=== PATIENT | male | born 1970 | race Two or more races ===

== ENCOUNTER → 2017-08-07 | Day surgery (SDC) | payer OTHER ==
[~2017-08-07] MED LIST: ATROPINE 1 MG/10 ML SYRINGE IV; DIPHENHYDRAMINE 50 MG INJ IV; EPHEDrine SULFATE 50 MG/5 ML SYG IV; FENTAnyl 50 MCG/ML VIAL IV; HYDROmorphONE (0.2 MG/ML) 10ML SYG IV; LABETALOL HCL 20MG INJ IV; MEPERIDINE 25 MG INJ IV; MIDAZOLAM 1 MG/ML 2 ML INJ IV; ONDANSETRON 4 MG INJ IV; hydrALAzine 20 MG INJ IV; morphine (1 MG/ML) 10ML SYRINGE IV
== END | disposition home or self-care (01) ==
LOC: SDS 07:40
DX: M23.231 Derangement of other medial meniscus due to old tear or injury, right knee (principal); M23.261 Derangement of other lateral meniscus due to old tear or injury, right knee; Z53.9 Procedure and treatment not carried out, unspecified reason

== ENCOUNTER 2017-08-16 08:11 | Day surgery (SDC) | payer OTHER ==
[2017-08-16] MEDS: ACETAMINOPHEN 325 MG TAB PO (09:31)
[2017-08-16] MEDS: DIPHENHYDRAMINE 50 MG INJ IV (09:31)
[2017-08-16 11:03] LABS: TYPE AND SCREEN 1 1
[2017-08-16] MEDS ORDERED: MEPERIDINE 100 MG INJ (12:27)
[2017-08-16] MEDS ORDERED: CEFAZOLIN 1 GM INJ (12:27)
[2017-08-16] MEDS ORDERED: PROPOFOL 20 ML (12:27)
[2017-08-16] MEDS ORDERED: LIDOCAINE 2% (SDV) 5 ML INJ (12:27)
[2017-08-16] MEDS ORDERED: morphine 2 MG INJ IV (12:30)
[2017-08-16] MEDS ORDERED: THROMBIN 5000 UNIT VIAL (12:39)
[2017-08-16] MEDS: BUPIVACAINE 0.5% (SDV) 30 ML INJ (13:25)
[2017-08-16] MEDS: morphine SULFATE/PF (10 MG/10 ML) INJ (13:25)
[2017-08-16] MEDS: ROPIVACAINE 0.5 % 30 ML VIAL (13:26)
[2017-08-16] MEDS: HEPARIN 1000 UNITS/ML 10 ML INJ (13:26)
[2017-08-16] MEDS: CA CHLORIDE 10% 10 ML SYRINGE (13:27)
[2017-08-16] MEDS ORDERED: OXYCODONE/ACETAMINOPHEN (5/325) TAB PO (13:30)
[2017-08-16] MEDS ORDERED: FENTAnyl 50 MCG/ML VIAL IV ×3 (13:30)
[2017-08-16] MEDS ORDERED: LABETALOL HCL 20MG INJ IV (13:30)
[2017-08-16] MEDS ORDERED: hydrALAzine 20 MG INJ IV (13:30)
[2017-08-16] MEDS ORDERED: MIDAZOLAM 1 MG/ML 2 ML INJ IV (13:30)
[2017-08-16] MEDS ORDERED: ONDANSETRON 4 MG INJ IV (13:30)
[2017-08-16] MEDS ORDERED: METOCLOPRAMIDE 10 MG INJ IV (13:30)
[2017-08-16] MEDS ORDERED: DIPHENHYDRAMINE 50 MG INJ IV (13:30)
[2017-08-16] MEDS ORDERED: EPHEDrine SULFATE 50 MG/5 ML SYG IV (13:30)
[2017-08-16] MEDS ORDERED: HYDROmorphONE (0.2 MG/ML) 10ML SYG IV ×3 (13:30)
[2017-08-16] MEDS ORDERED: MEPERIDINE 25 MG INJ IV (13:30)
[2017-08-16] MEDS: BACITRACIN/POLYMYXIN 28.35 GM OINT TOP (13:42)
[2017-08-16] MEDS ORDERED: EPHEDrine SULFATE 50 MG/5 ML SYG (13:56)
[2017-08-16 15:10] LABS: ADD MAN DIFF? NO
[2017-08-16 15:11] LABS: ABNORMAL IP MESSAGE 1; BASOPHILS % 0.3 % (0.0-2.0); EOSINOPHILS # 0.1 10^3/ul (0.0-0.5); EOSINOPHILS % 2.2 % (0.0-7.0); HEMATOCRIT 33.3 % (42.0-52.0); HEMOGLOBIN 11.5 g/dl (14.0-18.0); LYMPHOCYTES # 1.2 10^3/ul (0.8-2.9); LYMPHOCYTES % 32.6 % (15.0-51.0); MEAN CORPUSCULAR HEMOGLOBIN 33.7 pg (29.0-33.0); MEAN CORPUSCULAR HGB CONC 34.5 g/dl (32.0-37.0); MEAN CORPUSCULAR VOLUME 97.7 fl (82.0-101.0); MEAN PLATELET VOLUME 9.5 fl (7.4-10.4); MONOCYTE # 0.3 10^3/ul (0.3-0.9); MONOCYTES % 9.6 % (0.0-11.0); NEUTROPHILS % 54.7 % (39.0-77.0); PLATELET COUNT 54 10^3/UL (140-415); POSITIVE DIFF @See below; RED BLOOD COUNT 3.41 10^6/ul (4.70-6.10); RED CELL DISTRIBUTION WIDTH 15.5 % (11.5-14.5)
[2017-08-16 15:11] LABS: WHITE BLOOD COUNT 3.6 10^3/ul (4.8-10.8)
[2017-08-16 15:27] LABS: HOLD TRANSMISSIONS 1
[2017-08-16] MEDS: OXYCODONE/ACETAMINOPHEN (5/325) TAB PO (16:29)
== END 2017-08-16 17:15 | disposition home or self-care (01) ==
LOC: SDS 08:11
DX: M23.251 Derangement of posterior horn of lateral meniscus due to old tear or injury, right knee (principal); M84.351A Stress fracture, right femur, initial encounter for fracture; M84.361A Stress fracture, right tibia, initial encounter for fracture; X58.XXXA Exposure to other specified factors, initial encounter; I10 Essential (primary) hypertension; E66.01 Morbid (severe) obesity due to excess calories; Z68.41 Body mass index [BMI] 40.0-44.9, adult
CPT/HCPCS: 29855; 36430; 73562; 82306; 82962; 85025; 86644; 86850; 86900; 86901; 86945; 86999

== ENCOUNTER 2018-07-23 16:17 | Emergency (ER) | payer OTHER ==
[2018-07-23] MEDS: SOD CHLORIDE 0.9% 0 ML IV (20:25)
[2018-07-23 21:11] LABS: WHITE BLOOD COUNT 3.9 10^3/ul (4.8-10.8)
[2018-07-23 21:11] LABS: ABNORMAL IP MESSAGE 1; HEMATOCRIT 29.1 % (42.0-52.0); HEMOGLOBIN 9.9 g/dl (14.0-18.0); MEAN CORPUSCULAR HEMOGLOBIN 32.6 pg (29.0-33.0); MEAN CORPUSCULAR VOLUME 95.7 fl (82.0-101.0); MEAN PLATELET VOLUME 10.6 fl (7.4-10.4); POSITIVE DIFF @See below; RED BLOOD COUNT 3.04 10^6/ul (4.70-6.10); RED CELL DISTRIBUTION WIDTH 19.1 % (11.5-14.5)
[2018-07-23 21:17] LABS: ADD MAN DIFF? YES
[2018-07-23 21:18] LABS: PLATELET COUNT 25 10^3/UL (140-415)
[2018-07-23 21:26] LABS: INR 1.38; PROTIME 17.1 Sec (11.9-14.9); PT RATIO 1.3
[2018-07-23 21:27] LABS: PARTIAL THROMBOPLASTIN TIME 36.7 Sec (23.0-35.0)
[2018-07-23] MEDS ORDERED: ACETAMINOPHEN 325 MG TAB PO (21:30)
[2018-07-23] MEDS ORDERED: ONDANSETRON 4 MG INJ IV (21:30)
[2018-07-23 21:31] LABS: ALANINE AMINOTRANSFERASE 29 IU/L (13-69); ALBUMIN 3.1 g/dl (3.3-4.9); ALBUMIN/GLOBULIN RATIO 0.79; ALKALINE PHOSPHATASE 98 IU/L (42-121); ANION GAP 9 (5-13); ASPARTATE AMINO TRANSFERASE 50 IU/L (15-46); BILIRUBIN,INDIRECT 1.8 mg/dl (0-1.1); BILIRUBIN,TOTAL 1.8 mg/dl (0.2-1.3); BLOOD UREA NITROGEN 30 mg/dl (7-20); CARBON DIOXIDE 25 mmol/L (21-31); CHLORIDE 103 mmol/L (97-110); CREATININE 1.23 mg/dl (0.61-1.24); Estimated GFR > 60 mL/min (>60); GLUCOSE 131 mg/dl (70-220); POTASSIUM 4.4 mmol/L (3.5-5.1); SODIUM 137 mmol/L (135-144)
[2018-07-23 21:37] LABS: ANISOCYTOSIS 1+ (0-0); BASOPHILS % (M) 1 % (0-2); EOSINOPHILS % (M) 1 % (0-7); LYMPHOCYTES #M 1.7 10^3/ul (0.8-2.9); LYMPHOCYTES % (M) 44 % (15-51); MONOCYTE #M 0.2 10^3/ul (0.3-0.9); MONOCYTES % (M) 7 % (0-11); PLATELET ESTIMATE SIG DECREASED; POIKILOCYTOSIS 1+ (0-0); POLYCHROMASIA 2+ (0-0); SEGMENTED NEUTROPHILS (M) % 47 % (39-77); SMUDGE%M 5 % (0-0)
[2018-07-23 21:43] LABS: TROPONIN-I 0.014 ng/ml (0.000-0.120)
[2018-07-23 23:04] LABS: TYPE AND SCREEN 1 1
== END 2018-07-24 00:58 | disposition home or self-care (01) ==
LOC: E/R 07-24 00:58 → FTE 16:17
PROVIDERS: Pediatrics Neonatal-Perinatal Medicine
DX: D69.6 Thrombocytopenia, unspecified (principal); I10 Essential (primary) hypertension; E11.9 Type 2 diabetes mellitus without complications
CPT/HCPCS: 36415; 36430; 80053; 84484; 85025; 85610; 85730; 86644; 86850; 86900; 86901; 93005; 99285-25

== ENCOUNTER 2018-08-24 07:23 | Day surgery (SDC) | payer OTHER ==
[2018-08-24] MEDS ORDERED: INSULIN REGULAR, HUMAN 100 UNIT/1 ML 3ML VIAL SC ×3 (08:30→09:45)
[2018-08-24] MEDS ORDERED: PROPOFOL 40 ML (08:53)
== END 2018-08-24 12:56 | disposition home or self-care (01) ==
LOC: GIL 07:23
DX: I85.10 Secondary esophageal varices without bleeding (principal); K29.80 Duodenitis without bleeding; I10 Essential (primary) hypertension; E11.9 Type 2 diabetes mellitus without complications
CPT/HCPCS: 43239; 82962; 88305

== ENCOUNTER 2019-01-10 18:27 | Emergency (ER) | payer OTHER ==
[2019-01-10 19:38] LABS: ABNORMAL IP MESSAGE 1; HEMATOCRIT 20.6 % (42.0-52.0); MEAN CORPUSCULAR HEMOGLOBIN 33.5 pg (29.0-33.0); MEAN CORPUSCULAR VOLUME 101.5 fl (82.0-101.0); MEAN PLATELET VOLUME 11.3 fl (7.4-10.4); POSITIVE DIFF @See below; RED BLOOD COUNT 2.03 10^6/ul (4.70-6.10); RED CELL DISTRIBUTION WIDTH 16.2 % (11.5-14.5)
[2019-01-10 19:38] LABS: WHITE BLOOD COUNT 2.6 10^3/ul (4.8-10.8)
[2019-01-10 19:44] LABS: HEMOGLOBIN 6.8 g/dl (14.0-18.0)
[2019-01-10 19:45] LABS: ADD MAN DIFF? YES; PLATELET COUNT 21 10^3/UL (140-415)
[2019-01-10] MEDS ORDERED: SOD CHLORIDE 0.9% 0 ML IV (19:45)
[2019-01-10 19:58] LABS: ALANINE AMINOTRANSFERASE 30 IU/L (13-69); ALBUMIN 2.5 g/dl (3.3-4.9); ALBUMIN/GLOBULIN RATIO 0.75; ALKALINE PHOSPHATASE 77 IU/L (42-121); ANION GAP 5 (5-13); ASPARTATE AMINO TRANSFERASE 38 IU/L (15-46); BILIRUBIN,INDIRECT 1.7 mg/dl (0-1.1); BILIRUBIN,TOTAL 1.7 mg/dl (0.2-1.3); BLOOD UREA NITROGEN 21 mg/dl (7-20); CALCIUM 8.5 mg/dl (8.4-10.2); CARBON DIOXIDE 17 mmol/L (21-31); CHLORIDE 113 mmol/L (97-110); CREATININE 1.17 mg/dl (0.61-1.24); Estimated GFR > 60 mL/min (>60); GLUCOSE 168 mg/dl (70-220); LIPASE 403 U/L (23-300); POTASSIUM 4.1 mmol/L (3.5-5.1); SODIUM 135 mmol/L (135-144); TOTAL PROTEIN 5.8 g/dl (6.1-8.1)
[2019-01-10 20:02] LABS: INR 1.49; PROTIME 18.1 Sec (11.9-14.9); PT RATIO 1.4
[2019-01-10 20:03] LABS: PARTIAL THROMBOPLASTIN TIME 41.7 Sec (23.0-35.0)
[2019-01-10 20:51] LABS: ANISOCYTOSIS 1+ (0-0); BASOPHIL #M 0.1 10^3/ul (0.0-0.0); BASOPHILS % (M) 4 % (0-2); EOSINOPHILS % (M) 3 % (0-7); LYMPHOCYTES #M 0.8 10^3/ul (0.8-2.9); LYMPHOCYTES % (M) 33 % (15-51); MONOCYTE #M 0.3 10^3/ul (0.3-0.9); MONOCYTES % (M) 12 % (0-11); PLATELET ESTIMATE DECREASED; POIKILOCYTOSIS 1+ (0-0); POLYCHROMASIA 3+ (0-0); SEGMENTED NEUTROPHILS (M) % 48 % (39-77); SMUDGE%M 4 % (0-0)
[2019-01-10 21:05] LABS: IMMEDIATE SPIN CROSSMATCH 1 1
== END 2019-01-10 23:55 | disposition home or self-care (01) ==
LOC: E/R 18:27
DX: D59.1 Other autoimmune hemolytic anemias (principal); D61.818 Other pancytopenia; K74.60 Unspecified cirrhosis of liver; R18.8 Other ascites; E11.9 Type 2 diabetes mellitus without complications; I10 Essential (primary) hypertension; Z79.84 Long term (current) use of oral hypoglycemic drugs
CPT/HCPCS: 36415; 36430; 80053; 83690; 85025; 85610; 85730; 86850; 86900; 86901; 86920; 99285-25